=== PATIENT | female | born 1995 | race Caucasian/White ===

== ENCOUNTER 2018-06-15 20:28 | Emergency (ER) | payer OTHER ==
[2018-06-15] MEDS ORDERED: IBUPROFEN 600 MG TABLET PO ONE (23:31)
[2018-06-15] MEDS ORDERED: LIDOCAINE 5% (700 MG) TRANSDERMAL ADH..PATCH TP ONE (23:32)
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
[2018-06-15] MEDS ORDERED: ONDANSETRON 4 MG TAB.RAPDIS PO ONE (23:44)
[2018-06-16 00:47] VITALS: BP 116/60
== END 2018-06-16 00:47 | disposition home or self-care (01) ==
LOC: ER 20:28
DX: M54.2 Cervicalgia (principal); M54.6 Pain in thoracic spine; R42 Dizziness and giddiness; R11.0 Nausea; V49.40XA Driver injured in collision with unspecified motor vehicles in traffic accident, initial encounter
CPT/HCPCS: 99283; S0119